=== PATIENT | male | born 1995 | race African-American/Black ===

== ENCOUNTER 2022-10-30 15:32 | Emergency (ER) | payer SELFPAY ==
[~2022-10-30] VITALS: Ht 180.3 cm; Wt 78.0 kg
[2022-10-30 15:37] VITALS: BP 140/80
[2022-10-30 17:26] LABS: HEMATOCRIT. 48.1 % (42.0-52.0); HEMOGLOBIN. 15.8 g/dL (14.0-18.0); MEAN CORPUSCULAR HEMOGLOBIN 28.6 pg (28.0-32.0); MEAN CORPUSCULAR VOLUME 86.8 fL (80.0-94.0); MEAN PLATELET VOLUME 8.4 fl (7.4-10.4); PLATELET 224 x1000/uL (130-400); RED BLOOD CELL COUNT 5.54 mill/uL (4.7-6.1); RED CELL DISTRIBUTION WIDTH 14.1 % (11.6-14.6)
[2022-10-30 17:32] LABS: CHLORIDE 108 mEq/L (98-107)
[2022-10-30 17:33] LABS: ETHANOL BLOOD 101 mg/dL
[2022-10-30 17:59] LABS: PLATELET ESTIMATE NORMAL
== END 2022-10-30 20:36 | disposition left against medical advice (07) ==
LOC: ER 15:32
DX: S02.66XA Fracture of symphysis of mandible, initial encounter for closed fracture (principal); Y04.0XXA Assault by unarmed brawl or fight, initial encounter; Y93.89 Activity, other specified; Y92.488 Other paved roadways as the place of occurrence of the external cause
CPT/HCPCS: 36415; 70486; 80048; 80320; 85025; 99284; G0480